=== PATIENT | female | born 1985 | race Caucasian/White ===

== ENCOUNTER 2021-02-07 15:41 | Emergency (ER) | payer OTHER ==
[~2021-02-07] VITALS: Ht 160 cm; Wt 90.7 kg
[~2021-02-07 15:41] MED LIST: CYCLOBENZAPRINE10 MG PO; NORCO 5-325 TA1 EACH PO
== END 2021-02-07 20:04 | disposition home or self-care (01) ==
LOC: ED 15:41
DX: K59.00 Constipation, unspecified (principal); Z88.0 Allergy status to penicillin
CPT/HCPCS: 74177; 80053; 81001; 84703; 85025; 99284-25; Q9967